=== PATIENT | female | born 1970 | race Caucasian/White ===

== ENCOUNTER 2016-04-22 12:13 | Emergency (ER) | payer MEDICAID ==
[~2016-04-22] VITALS: Ht 157.5 cm; Wt 81.0 kg
[~2016-04-22 12:13] MED LIST: CYCL-319 PO; TRAM50TA2 PO
[2016-04-22 12:30] VITALS: Ht 157.5 cm; Wt 81.0 kg
[2016-04-22] MEDS ORDERED: ONDANSETRON (ODT) 4 MG TAB ODT STA (13:40)
[2016-04-22] MEDS ORDERED: HYDROCODONE/APAP (5/325) TAB PO ONE (14:00)
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
[2016-04-22] MEDS ORDERED: CYCL-319 PO (15:08)
[2016-04-22] MEDS ORDERED: HYDR-906 PO (15:08)
[2016-04-22] MEDS ORDERED: NAPR-260 PO (15:08)
[2016-04-22 15:17] VITALS: BP 126/68; PULSE 74; RESP 18; TEMP 98
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
== END 2016-04-22 15:18 | disposition home or self-care (01) ==
LOC: FTE 12:13
DX: S90.32XA Contusion of left foot, initial encounter (principal); S80.12XA Contusion of left lower leg, initial encounter; R07.89 Other chest pain; V49.40XA Driver injured in collision with unspecified motor vehicles in traffic accident, initial encounter
CPT/HCPCS: 71010; 72040; 73030; 73562; 73630; Z7502; Z7610